=== PATIENT | male | born 1975 | race Caucasian/White ===

== ENCOUNTER 2018-03-25 00:54 | Emergency (ER) | payer OTHER ==
[2018-03-25] MEDS: COLCHICINE 0.6 MG TAB PO ×2 (03:29→03:41)
[2018-03-25] MEDS: DEXAMETHASONE 10 MG/ML 1 ML INJ IM (03:31)
== END 2018-03-25 03:47 | disposition home or self-care (01) ==
LOC: FTE 00:54
DX: M10.9 Gout, unspecified (principal)
CPT/HCPCS: 96372; 99284-25

== ENCOUNTER 2018-11-10 03:32 | Emergency (ER) | payer OTHER ==
[2018-11-10] MEDS: IBUPROFEN 800 MG TAB PO (04:17)
[2018-11-10] MEDS: predniSONE 20 MG TAB PO (04:57)
[2018-11-10] MEDS: HYDROCODONE/APAP (5/325) TAB PO (05:00)
== END 2018-11-10 05:02 | disposition home or self-care (01) ==
LOC: FTE 03:32
DX: M10.9 Gout, unspecified (principal)
CPT/HCPCS: 73630; 73630-LT; 99283-25